=== PATIENT | female | born 1980 | race Hispanic/Latino ===

== ENCOUNTER → 2024-10-19 | Outpatient (CLI) | payer OTHER ==
--- NOTE | 2024-10-19 16:29 | HMCIMG ---
ANKLE 2VWS RT HISTORY: Ankle pain COMPARISON: None TECHNIQUE: 2 images of right ankle were obtained. FINDINGS: There is no acute displaced fracture or dislocation. There is soft tissue swelling. Minimal degenerative changes are seen. IMPRESSION: 1. Findings as described above.
--- NOTE | 2024-10-19 16:31 | HMCIMG ---
CERV SPINE 2-3VWS HISTORY: Back pain COMPARISON: None FINDINGS: 3 images of cervical spine were obtained. There is straightening of normal lordotic curvature which may be related to muscle spasm or positioning. No loss of vertebral height is seen. No fracture or dislocation is seen. IMPRESSION: 1. No fracture is seen.
== END | disposition home or self-care (01) ==
LOC: RAH 15:18
PROVIDERS: ATTEND Internal Medicine
DX: M19.071 Primary osteoarthritis, right ankle and foot (principal); M25.571 Pain in right ankle and joints of right foot; M54.50 Low back pain, unspecified; M54.2 Cervicalgia
CPT/HCPCS: 72040; 73600